=== PATIENT | female | born 1945 | race Caucasian/White ===

== ENCOUNTER 2019-07-19 19:10 | Emergency (ER) | payer OTHER ==
[~2019-07-19] VITALS: Ht 154.9 cm; Wt 83.0 kg
[2019-07-19 19:20] VITALS: BP 103/74
--- NOTE | 2019-07-19 19:27 | NUR ---
PT WHEELCHAIR ASSISTED TO ER BED 9.
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
--- NOTE | 2019-07-19 20:14 | NUR ---
DR. PERKINS EVALUATING AT BEDSIDE.
[2019-07-19] MEDS ORDERED: KETOROLAC 60 MG/2 ML VIAL IM ONE (20:20)
--- NOTE | 2019-07-19 21:13 | NUR ---
PT TAKEN TO CT VIA [facility]LL[facility]. Addendum: 07/19/19 at 2156 by [facility] PT TAKEN TO RADIOLOGY VIA GURNEY.
--- NOTE | 2019-07-19 21:35 | NUR ---
PT RETURNS VIA [email or web address].
--- NOTE | 2019-07-19 22:00 | NUR ---
PT TAKEN TO CT VIA [facility]LL[facility].
--- NOTE | 2019-07-19 22:36 | NUR ---
PT RETURNS FROM CT VIA [facility].
--- NOTE | 2019-07-20 00:02 | NUR ---
DR. PERKINS REEVALUATING AT BEDSIDE.
[2019-07-20] MEDS ORDERED: fentaNYL 0.05 MG/ML VIAL IM ONE (01:15)
--- NOTE | 2019-07-20 01:35 | NUR ---
PT RESTING COMFORTABLY WITH VSS. SISTER IN LAW AT BEDSIDE. PT IS CALM, COOPERATIVE, PLEASANT. SKIN PINK, WARM, DRY. BREATHING EVEN, UNLABORED. NO COMPLAINTS AT THIS TIME.
--- NOTE | 2019-07-20 01:36 | NUR ---
MAILROOM ASSISTANT AT BEDSIDE.
--- NOTE | 2019-07-20 01:52 | NUR ---
EMT PLACING SPLINT AT BEDSIDE.
[2019-07-20 02:40] VITALS: BP 129/52
--- NOTE | 2019-07-20 02:40 | NUR ---
WITNESSED PT AMBULATING WITH CRUTCHES.
--- NOTE | 2019-07-20 02:40 | NUR ---
Patient discharged with v/s stable. Written and verbal after care instructions given and explained. Patient alert, oriented and verbalized understanding of instructions. Wheel Chair Assisted with to car. All questions addressed prior to discharge. ID band removed. Patient advised to follow up with PMD. Rx of Tramadol and Motrin given. Patient educated on indication of medication including possible reaction and side effects. Opportunity to ask questions provided and answered.
--- NOTE | 2019-07-20 02:56 | NUR ---
PTS LEFT FOOT WAS PLACED IN A LONG LEG POSTERIOR SPLINT. AND CRUTCHES WERE GIVEN. PTS PMSC WNL AND PT SHOWED PROFICIENCY OF CRUTCHES.
== END 2019-07-20 02:40 | disposition home or self-care (01) ==
LOC: MED 19:10
DX: S82.192A Other fracture of upper end of left tibia, initial encounter for closed fracture (principal); E78.5 Hyperlipidemia, unspecified; F32.9 Major depressive disorder, single episode, unspecified; Z88.0 Allergy status to penicillin; W18.09XA Striking against other object with subsequent fall, initial encounter; Y93.89 Activity, other specified; Y92.89 Other specified places as the place of occurrence of the external cause; Y99.8 Other external cause status
CPT/HCPCS: 29505; 72192; 73030; 73080; 73700; 96372; 99284; J1885; J3010